=== PATIENT | female | born 1960 | race Caucasian/White ===

== ENCOUNTER 2023-10-11 17:51 | Inpatient (IN) | payer MEDICAID, OTHER ==
[~2023-10-11] VITALS: Ht 157.5 cm; Wt 71.0 kg
[2023-10-11 18:11] LABS: Basophils # (auto) 0 10 ^3/uL (0-0.2); Basophils % (auto) 0.7 % (0.0-2.0); Eosinophils # (auto) 0.1 10 ^3/uL (0-0.8); Eosinophils % (auto) 1.3 % (0.0-7.0); Hematocrit 44.1 % (36.0-46.0); Hemoglobin 14.9 g/dL (12.2-16.2); Lymphocytes # (auto) 2.2 10 ^3/uL (0.4-5.4); Lymphocytes % (auto) 33.5 % (10.0-50.0); Mean Corpuscular Hemoglobin 28.9 pg (28.0-32.0); Mean Corpuscular Hgb Conc. 33.8 g/dL (32.0-36.0); Mean Corpuscular Volume 85.5 fL (80.0-100.0); Monocytes # (auto) 0.4 10 ^3/uL (0-1.3); Monocytes % (auto) 5.8 % (0.0-12.0); Neutrophils # (auto) 3.9 10 ^3/uL (1.6-8.6); Neutrophils % (auto) 58.7 % (37.0-80.0); Nucleated Red Blood Cells % 0.2 %; Red Blood Cells 5.16 10^6/uL (4.0-5.20); White Blood Cell 6.6 10^3/uL (4.4-10.8)
[2023-10-11 18:29] LABS: Alanine Aminotransferase 31 U/L (7-40); Albumin 4.7 g/dL (3.2-4.8); Alkaline Phosphatase 69 U/L (46-116); Anion Gap 10 (5-15); Aspartate Aminotransferase 17 U/L (13-40); BUN/Creatinine Ratio 24.6 (10.0-20.0); Bilirubin, Total 0.7 mg/dL (0.2-1.0); Blood Urea Nitrogen 16 mg/dL (9-23); Carbon Dioxide 24 mmol/L (20-30); Chloride 104 mmol/L (98-107); Glucose 107 mg/dL (74-106); INR 1.03 (0.9-1.15); Partial Thromboplastin Time 30.8 SEC (24.5-34.5); Potassium 3.8 mmol/L (3.5-5.1); Prothrombin Time 10.8 sec (9.3-11.8); Sodium 138 mmol/L (136-145); Total Protein 6.8 g/dL (5.7-8.2)
[2023-10-11] MEDS: IOHEXOL 350 MG/ML 100ML IJ ONE (20:37)
[2023-10-11] MEDS ORDERED: hydrALAZINE HCL 20 MG/ML VL IV PRN (21:00)
[2023-10-11] MEDS ORDERED: MORPHINE SULFATE INJ 2 MG/ml SYRG IV PRN (21:00)
[2023-10-11] MEDS ORDERED: NITROGLYCERIN 0.4 MG SL TAB SL PRN (21:00)
[2023-10-11] MEDS ORDERED: ONDANSETRON HCL 4 MG/2 ML VIAL IV PRN (21:00)
[2023-10-11 21:22] LABS: LDL Cholesterol 214 mg/dL (< 100)
[2023-10-11 21:24] LABS: Cholesterol 315 mg/dL (< 200)
[2023-10-11 21:27] LABS: Triglycerides 162 mg/dL (< 150)
[2023-10-11 21:31] LABS: HDL Cholesterol 83 mg/dL (40-59)
[2023-10-11] MEDS: ATORVASTATIN 20 MG TAB PO SCH (22:49)
[2023-10-11] MEDS: LISINOPRIL 10 MG TAB PO ONE (22:49)
[2023-10-12 07:39] LABS: Urine Bacteria NONE SEEN /hpf (None Seen); Urine Blood Negative /uL (Negative); Urine Clarity Clear (Clear); Urine Color Colorless (Yellow); Urine Protein, UAD Negative (Negative); Urine Specific Gravity 1.017 (1.001-1.035); Urine Urobilinogen Normal (Negative); Urine WBC 1 /hpf (0 - 5)
[2023-10-12 07:45] VITALS: PULSE 87; RESP 18; O2SAT 97
[2023-10-12] MEDS: ASPirin 81 mg TAB PO SCH (10:08)
[2023-10-12] MEDS: ACETAMINOPHEN 325 MG TAB PO PRN (10:08)
[2023-10-12] MEDS: LISINOPRIL 10 MG TAB PO SCH (10:08)
[2023-10-12 10:15] LABS: Basophils # (auto) 0.1 10 ^3/uL (0-0.2); Basophils % (auto) 1.2 % (0.0-2.0); Eosinophils # (auto) 0.1 10 ^3/uL (0-0.8); Eosinophils % (auto) 1.4 % (0.0-7.0); Hematocrit 44.4 % (36.0-46.0); Hemoglobin 15.6 g/dL (12.2-16.2); Mean Corpuscular Hemoglobin 29.6 pg (28.0-32.0); Mean Corpuscular Hgb Conc. 35.1 g/dL (32.0-36.0); Mean Corpuscular Volume 84.2 fL (80.0-100.0); Monocytes # (auto) 0.3 10 ^3/uL (0-1.3); Monocytes % (auto) 4.9 % (0.0-12.0); Neutrophils # (auto) 4.1 10 ^3/uL (1.6-8.6); Neutrophils % (auto) 62.5 % (37.0-80.0); Nucleated Red Blood Cells % 0.5 %; Red Blood Cells 5.27 10^6/uL (4.0-5.20); Red Cell Distribution Width 13.6 % (11.8-14.3); White Blood Cell 6.5 10^3/uL (4.4-10.8)
[2023-10-12 10:39] LABS: Alanine Aminotransferase 27 U/L (7-40); Alkaline Phosphatase 70 U/L (46-116); Anion Gap 9 (5-15); Aspartate Aminotransferase 14 U/L (13-40); BUN/Creatinine Ratio 14.9 (10.0-20.0); Blood Urea Nitrogen 10 mg/dL (9-23); Calcium 9.9 mg/dL (8.7-10.4); Carbon Dioxide 25 mmol/L (20-30); Chloride 103 mmol/L (98-107); Glucose 146 mg/dL (74-106); Potassium 3.7 mmol/L (3.5-5.1); Sodium 137 mmol/L (136-145)
[2023-10-12 10:40] LABS: Albumin 4.9 g/dL (3.2-4.8); Bilirubin, Total 0.8 mg/dL (0.2-1.0); Total Protein 7.2 g/dL (5.7-8.2)
[2023-10-12] MEDS: cefTRIAXone 1GM/50ML D5W 50 ML IV ONE (10:48)
[2023-10-12 11:05] LABS: Amphetamine Screen, Urine Neg (NEGATIVE); Barbiturate Scree,Urine Neg (NEGATIVE); Benzodiazephine Screen, Urine Neg (NEGATIVE); Cannabinoid Screen, Urine Neg (NEGATIVE); Cocaine Screen, Urine Neg (NEGATIVE); Opiate Scree,Urine Neg (NEGATIVE); Phencyclidine Screen, Urine Neg (NEGATIVE)
[2023-10-12 11:10] LABS: Partial Thromboplastin Time 31.2 SEC (24.5-34.5); Prothrombin Time 10.5 sec (9.3-11.8)
[2023-10-12] MEDS: metroNIDAZOLE 500MG/100ML 100 ML IV SCH (14:09)
[2023-10-12 19:30] VITALS: PULSE 91; RESP 17; O2SAT 96
[2023-10-12] MEDS: ATORVASTATIN 20 MG TAB PO SCH (21:54)
[2023-10-12 22:00] VITALS: BP 118/77; PULSE 84; RESP 19; TEMP 97.8; O2SAT 96
[2023-10-12] MEDS: ENOXAPARIN SOD 80 MG/0.8ML SYRINGE SC SCH (22:00)
[2023-10-13] VITALS (10 sets, daily range): BP systolic 105–119; BP diastolic 68–82; PULSE 60–99; RESP 12–20; TEMP 97.8–98.9; O2SAT 95–98
[2023-10-13] MEDS ORDERED: CHOL200043 PO (03:23)
[2023-10-13] MEDS ORDERED: FERR325T20 PO (03:23)
[2023-10-13 06:53] LABS: Basophils # (auto) 0 10 ^3/uL (0-0.2); Basophils % (auto) 0.6 % (0.0-2.0); Eosinophils # (auto) 0.1 10 ^3/uL (0-0.8); Eosinophils % (auto) 1.8 % (0.0-7.0); Hematocrit 43.7 % (36.0-46.0); Hemoglobin 15.1 g/dL (12.2-16.2); Lymphocytes # (auto) 1.7 10 ^3/uL (0.4-5.4); Lymphocytes % (auto) 28.9 % (10.0-50.0); Mean Corpuscular Hemoglobin 29.3 pg (28.0-32.0); Mean Corpuscular Hgb Conc. 34.5 g/dL (32.0-36.0); Monocytes # (auto) 0.3 10 ^3/uL (0-1.3); Monocytes % (auto) 5.8 % (0.0-12.0); Neutrophils # (auto) 3.7 10 ^3/uL (1.6-8.6); Neutrophils % (auto) 62.9 % (37.0-80.0); Nucleated Red Blood Cells % 0.1 %; Red Blood Cells 5.14 10^6/uL (4.0-5.20); Red Cell Distribution Width 13.8 % (11.8-14.3); White Blood Cell 5.8 10^3/uL (4.4-10.8)
[2023-10-13 07:03] LABS: Alanine Aminotransferase 21 U/L (7-40); Albumin 4.7 g/dL (3.2-4.8); Alkaline Phosphatase 65 U/L (46-116); Anion Gap 7 (5-15); Aspartate Aminotransferase 22 U/L (13-40); Bilirubin, Total 0.8 mg/dL (0.2-1.0); Blood Urea Nitrogen 7 mg/dL (9-23); Calcium 9.8 mg/dL (8.5-10.1); Carbon Dioxide 25 mmol/L (20-30); Chloride 108 mmol/L (98-107); Cholesterol 270 mg/dL (< 200); Glucose 113 mg/dL (74-106); HDL Cholesterol 75 mg/dL (40-59); LDL Cholesterol 180 mg/dL (< 100); Potassium 4.3 mmol/L (3.5-5.1); Sodium 140 mmol/L (136-145); Total Protein 6.9 g/dL (5.7-8.2); Triglycerides 125 mg/dL (< 150)
[2023-10-13 07:16] LABS: Magnesium 2.1 mg/dL (1.6-2.6)
[2023-10-13] MEDS: cefTRIAXone 1GM/50ML D5W 50 ML IV SCH (09:00)
[2023-10-13] MEDS: VERAPAMIL 2.5MG/ML INJ 2ML VIAL IV ONE (12:10)
[2023-10-13] MEDS: fentaNYL CITRATE 100 MCG/2 ML VL ONE (12:10)
[2023-10-13] MEDS: HEPARIN SODIUM (PORCINE) 5000 UNITS/ML 1ML VIAL ONE (12:10)
[2023-10-13] MEDS: ANGIOMAX 250 MG VIAL IV ONE (12:10)
[2023-10-13] MEDS: MIDAZOLAM HCL 2MG/2ML 2ml VIAL (1mg/ml) ONE (12:10)
[2023-10-13] MEDS: IODIXANOL 320MG/ML 100ML BTL IV ONE (12:11)
[2023-10-13] MEDS: LIDOCAINE 2%HCL (LOCAL ANESTH.) INJ 20ML MDV ONE (12:11)
[2023-10-14] VITALS (7 sets, daily range): BP systolic 107–142; BP diastolic 62–89; PULSE 84–103; RESP 17–18; TEMP 97.6–98.6; O2SAT 94–98
[2023-10-14 06:27] LABS: Basophils # (auto) 0 10 ^3/uL (0-0.2); Basophils % (auto) 0.7 % (0.0-2.0); Eosinophils # (auto) 0.1 10 ^3/uL (0-0.8); Eosinophils % (auto) 2.5 % (0.0-7.0); Hematocrit 42.9 % (36.0-46.0); Hemoglobin 14.6 g/dL (12.2-16.2); Lymphocytes # (auto) 1.9 10 ^3/uL (0.4-5.4); Lymphocytes % (auto) 34.3 % (10.0-50.0); Mean Corpuscular Hemoglobin 29.1 pg (28.0-32.0); Mean Corpuscular Hgb Conc. 34.1 g/dL (32.0-36.0); Mean Corpuscular Volume 85.3 fL (80.0-100.0); Monocytes # (auto) 0.4 10 ^3/uL (0-1.3); Monocytes % (auto) 7.6 % (0.0-12.0); Neutrophils # (auto) 3.1 10 ^3/uL (1.6-8.6); Neutrophils % (auto) 54.9 % (37.0-80.0); Nucleated Red Blood Cells % 0.3 %; Red Blood Cells 5.03 10^6/uL (4.0-5.20); Red Cell Distribution Width 13.6 % (11.8-14.3); White Blood Cell 5.6 10^3/uL (4.4-10.8)
[2023-10-14 06:30] LABS: Alanine Aminotransferase 22 U/L (7-40); Albumin 4.4 g/dL (3.2-4.8); Alkaline Phosphatase 62 U/L (46-116); Anion Gap 10 (5-15); Aspartate Aminotransferase 16 U/L (13-40); BUN/Creatinine Ratio 11.9 (10.0-20.0); Bilirubin, Total 0.8 mg/dL (0.2-1.0); Blood Urea Nitrogen 8 mg/dL (9-23); Calcium 9.1 mg/dL (8.7-10.4); Carbon Dioxide 21 mmol/L (20-30); Chloride 106 mmol/L (98-107); Glucose 117 mg/dL (74-106); Magnesium 1.9 mg/dL (1.6-2.6); Potassium 3.7 mmol/L (3.5-5.1); Sodium 137 mmol/L (136-145); Total Protein 6.6 g/dL (5.7-8.2)
[2023-10-14] MEDS: ENOXAPARIN SOD 40 MG/0.4 ML SYRINGE SC SCH (09:49)
[2023-10-14] MEDS: TEMAZEPAM 15 MG CAP PO PRN (22:11)
[2023-10-15 05:00] VITALS: BP 129/87; PULSE 89; RESP 17; TEMP 97.9; O2SAT 96
[2023-10-15 08:00] VITALS: PULSE 83
[2023-10-15 09:00] VITALS: BP 116/77; PULSE 86; RESP 18; TEMP 98; O2SAT 94
[2023-10-15 11:30] VITALS: BP 116/77; PULSE 86; RESP 18; TEMP 98; O2SAT 94
[2023-10-15 13:00] VITALS: BP 104/75; PULSE 104; RESP 20; TEMP 98; O2SAT 95
== END 2023-10-15 12:45 | disposition short-term general hospital (02) | DRG 192 ==
LOC: ER 17:51 → EDBD 17:51 → TELE 20:54 → TELE-WESTW 10-12 22:25
PROVIDERS: ADMIT Internal Medicine Geriatric Medicine; ATTEND Student in an Organized Health Care Education/Training Program
PROC: B211YZZ Fluoroscopy of Multiple Coronary Arteries using Other Contrast (ICD-10-PCS; principal; 2023-10-13)
PROC: 4A023N7 Measurement of Cardiac Sampling and Pressure, Left Heart, Percutaneous Approach (ICD-10-PCS; 2023-10-13)
PROC: B215YZZ Fluoroscopy of Left Heart using Other Contrast (ICD-10-PCS; 2023-10-13)
DX: I35.0 Nonrheumatic aortic (valve) stenosis (principal); K57.92 Diverticulitis of intestine, part unspecified, without perforation or abscess without bleeding; I25.110 Atherosclerotic heart disease of native coronary artery with unstable angina pectoris; K80.10 Calculus of gallbladder with chronic cholecystitis without obstruction; I10 Essential (primary) hypertension; E78.5 Hyperlipidemia, unspecified; Z96.642 Presence of left artificial hip joint; Z79.82 Long term (current) use of aspirin; Z90.710 Acquired absence of both cervix and uterus
CPT/HCPCS: 36415; 71045; 71260; 74177; 80053; 80061; 80307; 81001; 82306; 82607; 83036; 83735; 83880; 84443; 84484; 85025; 85379; 85610; 85730; 86850; 86900; 86901; 93005; 93306; 93458; 99152; G0378; J2250; J3490; Q9967